=== PATIENT | male | born 1965 | race Caucasian/White ===

== ENCOUNTER 2018-04-24 05:58 | Inpatient (IN) | payer BC ==
[~2018-04-24 05:58] MED LIST: Buffered Lidocaine 0.9% SYRIN* 5 ML/SYR SYRINGE INTRADERM ONE
--- OUTSIDE RECORDS SUMMARY | 2018-04-24 06:03 | XMS REPORT ---
:1965 External Reference #:[id number] Author Organization [employer] Address [address] [place] [address] Phone [phone] Care Team Providers Name Role Phone Chasity Garcia MD Primary Care Physician Unavailable Payers Type Date Identification Numbers Payment Provider Subscriber Health Maintenance Policy Number: [facility] Damaso Cain [facility] (O) [id number] Group Number: [id number] [address] PayID: [id number] KARIE Johnston [address] Medigap Part B Expires: 12/14/2016 Policy Number: BS GISELLE Cain [id number] Group Number: [id number] [address] PayID: [id number] KARIE Rogers [id number] Problems Date Description Provider Status Onset: 04/25/2015 Localized, primary osteoarthritis Adams Stanford M.D. Active Onset: 06/06/2015 Enthesopathy of knee Adams Stanford M.D. Active Onset: 05/10/2017 Arthroplasty of knee Adams Stanford M.D. Active Onset: 05/10/2017 Aftercare following joint replacement Adams Stanford M.D. Active surgery Onset: 12/22/2017 Sciatica Adams Stanford M.D. Active Onset: 12/22/2017 Iliotibial band friction syndrome Adams Stanford M.D. 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 times a day as needed No Active 12/22/ Hx Unknown Medications 2017 - 2017 Diclofenac Sodium 07/26/ Hx Gel 1% 300gm apply 4 M17.0 Adams 2017 - gr to Abdoulaye, 11/28/ knees M.D. 2017 twice a day as needed Keflex 05/09/ Hx Capsules 500mg 21caps 1 tablet Adams 2016 - every 8 Abdoulaye, 05/09/ hours x 5 M.D. 2017 days Oxycodone HCL 04/29/ Hx Capsules 5mg 90caps one to Adams 2016 - three Abdoulaye, 11/28/ tablets M.D. 2017 every 3-4 hours as needed for pain Xarelto 04/29/ Hx Tablets 10mg 20tabs one Adams 2016 - tablet Abdoulaye, 05/09/ daily x M.D. 2016 20 days Ibuprofen 200 04/13/ Hx Tablets 200mg 2 tabs Adams 2016 - prn Abdoulaye, 11/28/ M.D. 2017 Naproxen 12/15/ Hx Tablets 500mg 60tabs 1 tablet Adams 2016 - with food Abdoulaye, 11/28/ by mouth M.D. 2017 twice a day as needed No Active 04/25/ Hx Unknown Medications 2014 - 2015 Advil / Hx Capsules 200mg as needed Unknown 0000 - 2016 Etodolac / Hx Tablets 400mg 1 tab by Unknown 0000 - mouth 2017 times daily as needed Vital Signs Date Vital Result Comment 03/28/2018 Height 67 inches 5'7" Weight 227.00 lb Heart Rate 76 /min BP Systolic Recheck 134 mmHg BP Diastolic Recheck 84 mmHg Respiratory Rate 16 /min Body Temperature 98.1 F BMI (Body Mass Index) 35.5 kg/m2 12/22/2017 Height 67 inches 5'7" Weight 226.00 lb Heart Rate 80 /min BP Systolic Recheck 126 mmHg BP Diastolic Recheck 84 mmHg Respiratory Rate 16 /min Body Temperature 97.6 F BMI (Body Mass Index) 35.4 kg/m2 09/29/2017 Height 67 inches 5'7" Weight 225.00 lb Heart Rate 80 /min BP Systolic Recheck 126 mmHg BP Diastolic Recheck 84 mmHg Respiratory Rate 16 /min Body Temperature 97.9 F BMI (Body Mass Index) 35.2 kg/m2 08/18/2017 Height 68 inches 5'8" Weight 222.00 lb Heart Rate 80 /min BP Systolic Recheck 130 mmHg BP Diastolic Recheck 84 mmHg Respiratory Rate 16 /min Body Temperature 98.0 F BMI (Body Mass Index) 33.8 kg/m2 07/26/2017 Height 68 inches 5'8" Weight 217.00 lb Heart Rate 76 /min BP Systolic Recheck 128 mmHg BP Diastolic Recheck 84 mmHg Respiratory Rate 16 /min Body Temperature 98.1 F BMI (Body Mass Index) 33.0 kg/m2 06/28/2017 Height 68 inches 5'8" Weight 216.00 lb Heart Rate 80 /min BP Systolic Recheck 128 mmHg BP Diastolic Recheck 84 mmHg Respiratory Rate 16 /min Body Temperature 98.6 F BMI (Body Mass Index) 32.8 kg/m2 05/24/2017 Height 68 inches 5'8" Weight 215.00 lb Heart Rate 80 /min BP Systolic Recheck 132 mmHg BP Diastolic Recheck 84 mmHg Respiratory Rate 16 /min Body Temperature 98.0 F BMI (Body Mass Index) 32.7 kg/m2 05/10/2017 Height 69 inches 5'9" Weight 200.00 lb Heart Rate 76 /min BP Systolic Recheck 122 mmHg BP Diastolic Recheck 76 mmHg Respiratory Rate 16 /min Body Temperature 98.3 F BMI (Body Mass Index) 29.5 kg/m2 04/13/2017 Height 69 inches 5'9" Weight 215.00 lb BP Systolic 126 mmHg BP Diastolic 74 mmHg Respiratory Rate 18 /min Body Temperature 97.1 F Pain Level 8 BMI (Body Mass Index) 31.7 kg/m2 03/31/2017 Height 66 inches 5'6" Weight 217.50 lb with shoes Heart Rate 80 /min BP Systolic 114 mmHg left arm, large cuff BP Diastolic 80 mmHg left arm, large cuff BP Systolic Sitting 132 mmHg right arm, large cuff BP Diastolic Sitting 82 mmHg right arm, large cuff BP Systolic Standing 120 mmHg right arm, large cuff BP Diastolic Standing 80 mmHg right arm, large cuff BMI (Body Mass Index) 35.1 kg/m2 03/24/2017 Height 69 inches 5'9" Weight 215.00 lb Heart Rate 80 /min BP Systolic Recheck 126 mmHg BP Diastolic Recheck 84 mmHg Respiratory Rate 16 /min Body Temperature 97.9 F BMI (Body Mass Index) 31.7 kg/m2 12/15/2016 Height 69 inches 5'9" Weight 212.00 lb Heart Rate 74 /min BP Systolic 142 mmHg BP Diastolic 92 mmHg Body Temperature 98.6 F BMI (Body Mass Index) 31.3 kg/m2 11/25/2016 Height 69 inches 5'9" Weight 212.00 lb Heart Rate 76 /min BP Systolic Recheck 130 mmHg BP Diastolic Recheck 84 mmHg Respiratory Rate 16 /min Body Temperature 97.8 F BMI (Body Mass Index) 31.3 kg/m2 11/11/2016 Height 68 inches 5'8" Weight 209.00 lb Heart Rate 76 /min BP Systolic Recheck 126 mmHg BP Diastolic Recheck 80 mmHg Respiratory Rate 16 /min Body Temperature 98.0 F BMI (Body Mass Index) 31.8 kg/m2 11/04/2016 Height 67 inches 5'7" Weight 209.00 lb Heart Rate 80 /min BP Systolic Recheck 132 mmHg BP Diastolic Recheck 86 mmHg Respiratory Rate 16 /min Body Temperature 98.1 F BMI (Body Mass Index) 32.7 kg/m2 09/14/2016 Height 68 inches 5'8" Weight 211.00 lb Heart Rate 80 /min BP Systolic Recheck 136 mmHg BP Diastolic Recheck 84 mmHg Respiratory Rate 16 /min Body Temperature 97.9 F BMI (Body Mass Index) 32.1 kg/m2 05/27/2016 Height 67 inches 5'7" Weight 206.00 lb Heart Rate 80 /min BP Systolic Recheck 124 mmHg BP Diastolic Recheck 80 mmHg Respiratory Rate 16 /min Body Temperature 98.6 F BMI (Body Mass Index) 32.3 kg/m2 04/08/2016 Height 67 inches 5'7" Weight 212.00 lb Heart Rate 80 /min BP Systolic Recheck 126 mmHg BP Diastolic Recheck 80 mmHg Respiratory Rate 16 /min Body Temperature 97.8 F BMI (Body Mass Index) 33.2 kg/m2 06/06/2015 Height 67 inches 5'7" Weight 211.00 lb Heart Rate 80 /min BP Systolic Recheck 132 mmHg BP Diastolic Recheck 84 mmHg Respiratory Rate 16 /min Body Temperature 98.0 F BMI (Body Mass Index) 33.0 kg/m2 04/25/2015 Height 68 inches 5'8" Weight 213.00 lb Heart Rate 72 /min BP Systolic Recheck 124 mmHg BP Diastolic Recheck 80 mmHg Respiratory Rate 16 /min Body Temperature 98.6 F Pain Level 6 BMI (Body Mass Index) 32.4 kg/m2 Results Test Date Test Result H/L Range Note CBC No Diff 04/13/2017 White Blood Count 7.8 10^3/uL 3.5-10.8 Red Blood Count 4.86 10^6/uL 4.0-5.4 Hemoglobin 14.6 g/dL 14.0-18.0 Hematocrit 43 % 42-52 Mean Corpuscular Volume 89 fL 80-94 Mean Corpuscular Hemoglobin 30 pg 27-31 Mean Corpuscular HGB Conc 34 g/dL 31-36 Red Cell Distribution Width 13 % 10.5-15 Platelet Count 265 10^3/uL 150-450 Mean Platelet Volume 8 um3 7.4-10.4 Urinalysis Profile 04/13/2017 Urine Color Straw Urine Appearance Clear Urine Specific Rowena 1.003 Low 1.010-1.030 Urine pH 6.0 5-9 Urine Urobilinogen Negative Negative Urine Ketones Negative Negative Urine Protein Negative Negative Urine Leukocytes Negative Negative Urine Blood Negative Negative Urine Nitrite Negative Negative Urine Bilirubin Negative Negative Urine Glucose Negative Negative Inr/Protime 04/13/2017 Inr 0.81 Low 0.89-1.11 Laboratory test finding 04/13/2017 Partial Thrombo Time 31.2 seconds 26.0 -36.3 PTT Comp Metabolic Panel 04/13/2017 Sodium 140 mmol/L 133-145 Potassium 4.1 mmol/L 3.5-5.0 Chloride 106 mmol/L 101-111 Co2 Carbon Dioxide 30 mmol/L 22-32 Anion Gap 4 mmol/L 2-11 Glucose 91 mg/dL 70-100 Blood Urea Nitrogen 11 mg/dL 6-24 Creatinine 0.68 mg/dL 0.67-1.17 BUN/Creatinine Ratio 16.2 8-20 Calcium 8.6 mg/dL 8.6-10.3 Total Protein 6.3 g/dL Low 6.4-8.9 Albumin 4.1 g/dL 3.2-5.2 Globulin 2.2 g/dL 2-4 Albumin/Globulin Ratio 1.9 1-3 Total Bilirubin 0.40 mg/dL 0.2-1.0 Alkaline Phosphatase 70 U/L 34-104 Alt 22 U/L 7-52 Ast 16 U/L 13-39 Egfr Non- 122.0 >60 Egfr 156.9 >60 1 Type & Screen 04/13/2017 Patient Blood Type A Positive Antibody Screen NEGATIVE Urine Culture And Sensitivities 04/13/2017 Urine Culture SEE RESULT BELOW 2 1 Because ethnic data is not always readily available, this report includes an eGFR for both -Americans and non- Americans. The National Kidney Disease Education Program (NKDEP) does not endorse the use of the MDRD equation for patients that are not between the ages of 18 and 70, are , have extremes of body size, muscle mass, or nutritional status, or are non- or non-. According to the National Kidney Foundation, irrespective of diagnosis, the stage of the disease is based on the level of kidney function: Stage Description GFR(mL/min/1.73 m(2)) 1 Kidney damage with normal or decreased GFR 90 2 Kidney damage with mild decrease in GFR 60-89 3 Moderate decrease in GFR 30-59 4 Severe decrease in GFR 15-29 5 Kidney failure <15 (or dialysis) 2 SEE RESULT BELOW Name: DAMASO CAIN : [address]: Adams Stanford MD Acct: [id number] Unit: [id number] AGE: 52 Location: [facility] Re04/13/17 SEX: M Status: REG REF SPEC: [id number] AMADEO: 04/13/[address] [facility] [address]: Adams Stanford MD REQ: [id number] RECD: 04/13/170 STATUS: COMP _ SOURCE: URINE SPDESC: ORDERED: Urine Culture QUERIES: Urine Source: Clean Catch Procedure Result Reported Site Urine Culture Final 04/14/17- 1239 ML No Growth (<1,000 CFU/mL) * ML - MAIN LAB ([facility]) . END OF REPORT * ML=Testing performed at Main Lab DEPARTMENT OF PATHOLOGY, [address] [place] [address] Shay Camejo M.D. Director [facility] # [id number] Procedures Date CPT Code Description Status 12/22/2017 Inject/Drain Joint/Bursa Major W/O US Completed 08/18/2017 Inject/Drain Joint/Bursa Major W/O US Completed 07/26/201778009 Inject/Drain Joint/Bursa Major W/O US Completed 04/25/2017 18837 TKR Total Knee Replacement Completed 04/25/2017 60010 TKR Total Knee Replacement Completed 03/31/2017 26591 EKG, Interpretation Only Completed 11/25/201609186 Inject/Drain Joint/Bursa Major W/O US Completed 11/11/201648893 Inject/Drain Joint/Bursa Major W/O US Completed 11/04/201698258 Inject/Drain Joint/Bursa Major W/O US Completed 09/14/201656102 Inject/Drain Joint/Bursa Major W/O US Completed 04/08/201663870 Inject/Drain Joint/Bursa Major W/O US Completed 04/25/201551800 Inject/Drain Joint/Bursa Major W/O US Completed Encounters Type Date Location Provider CPT E/M Dx Office Visit 12/22/2017 [facility], [address]84 M17.12 8:00a Klaudia Kline M.D. M76.31 M54.31 Z96.651 Office Visit 09/29/2017 8:00a [facility] 71708 M70.51 Klaudia Kline M.D. Z96.651 Office Visit 08/18/2017 8:15a [facility] 03739 M70.51 Klaudia Kline M.D. Z47.1 Z96.651 Office Visit 07/26/2017 8:00a [facility] M.D. 85617 Z47.1 Klaudia Crandall96.651 M17.12 Office Visit 03/31/2017 10:00a Eliud Liang, 09997 Z01.810 Martin M17.11 Z13.6 Office Visit 03/24/2017 8:30a [facility] 49704 M17.11 Klaudia Kline M.D. Office Visit 12/15/2016 9:00a [facility] 20503 M17.0 [facility] Office Visit 05/27/2016 8:00a [facility] 27155 M17.0 Klaudia AT Eliud Salazar Office Visit 04/08/2016 8:30a [facility] 02529 M17.0 Klaudia AT Eliud Salazar Office Visit 06/06/2015 9:30a [facility] 28661 M70.51 Klaudia AT Eliud Salazar Office Visit 04/25/2015 8:30a [facility] 06271 M17.0 Klaudia AT Eliud Salazar Plan of Care Future Appointment(s):05/23/2018 9:30 am - Adams [facility] M.D. at [facility] AT Bnribyib34/29/2018 7:30 am - NICOLE Jorge at [facility]04/24/2018 7:30 am - Adams Stanford M.D. at [facility]03/28/2018 - Adams Stanford M.D.M17.12 Unilateral primary osteoarthritis, left kneeFollow up:4 weeks after surgery
[2018-04-24] MEDS ORDERED: ceFAZolin 2 GM PREMIX in ORs 2 GM/50 ML BAG IVPB ONE (06:13)
[2018-04-24] MEDS ORDERED: Buffered Lidocaine 0.9% SYRIN* 5 ML/SYR SYRINGE ONE (06:14)
[2018-04-24] MEDS ORDERED: Midazolam* 1 MG/ML 5 ML VIAL (5 MG) ONE (07:27)
[2018-04-24] MEDS ORDERED: fentaNYL* 50 MCG/ML 2 ML VIAL (100 MCG VIAL) ONE (07:27)
[2018-04-24] MEDS ORDERED: Tranexamic Acid 1,000 MG in NS 0.9% 50 ML IV ONE (07:30)
[2018-04-24] MEDS ORDERED: Bupivacaine 0.25% W/EPI* 10 ML SDV ONE (07:34)
[2018-04-24] MEDS ORDERED: ROPIVACAINE 5 MG/ML 30 ML BTL (0.5%) ONE (07:36)
[2018-04-24] MEDS ORDERED: Bupivacaine 0.5% SDV PF* 30ML VIAL ONE (08:03)
[2018-04-24] MEDS ORDERED: Propofol* 10 MG/ML 20 ML BTL IV PUSH ONE ×2 (08:03→09:18)
[2018-04-24] MEDS ORDERED: EPHEDrine (Pressors)* 50 MG/ML VIAL ONE (08:06)
[2018-04-24] MEDS ORDERED: Ondansetron INJ* 2 MG/ML VIAL IV PRN ×2 (10:09→10:11)
[2018-04-24] MEDS ORDERED: fentaNYL* 50 MCG/ML 2 ML VIAL (100 MCG VIAL) IV PRN (10:09)
[2018-04-24] MEDS ORDERED: Naloxone* 0.4 MG/ML 1 ML VIAL IV PRN (10:09)
[2018-04-24] MEDS ORDERED: Ondansetron TAB* 4 MG PO PRN (10:11)
[2018-04-24] MEDS ORDERED: diPHENhydraMINE IV* 50 MG/ML 1 ml VIAL (BENADRYL) IV PRN (10:11)
[2018-04-24] MEDS ORDERED: diPHENhydraMINE PO* 25 MG PO PRN (10:11)
[2018-04-24] MEDS ORDERED: Magnesium Hydroxide LIQ* 30 ML UDC PO PRN (10:11)
[2018-04-24] MEDS ORDERED: Morphine INJ* 2 MG/ML 1 ML SYRINGE (TWO MG - NEW SYRINGE VERSION) IV PRN (10:11)
[2018-04-24] MEDS ORDERED: HYDROmorphone INJ1* 1 MG/ML SYRINGE ONE (10:41)
[2018-04-24] MEDS: HYDROmorphone INJ1* 1 MG/ML SYRINGE IV PRN ×3 (10:42→10:58)
--- NOTE | 2018-04-24 10:45 | RAD ---
INDICATION: Status post total left knee were replacement surgery. TECHNIQUE: 2 views of the left knee were obtained. FINDINGS: The patient is status post total left knee replacement surgery. The bones and prostheses are in normal alignment. There is a small amount of air within the soft tissues consistent with the patient's recent surgery. There are multiple surgical cee present anterior. IMPRESSION: STATUS POST TOTAL LEFT KNEE REPLACEMENT SURGERY.
[2018-04-24] MEDS ORDERED: oxyCODONE/Acetamin 5/325 MG* TAB ONE (10:47)
[2018-04-24] MEDS: oxyCODONE/Acetamin 5/325 MG* TAB PO PRN ×2 (10:48→10:49)
[2018-04-24] MEDS ORDERED: Acetaminophen TAB* 325 MG PO SCH (11:00)
[2018-04-24] MEDS ORDERED: ceFAZolin 1 GM in Dextrose (*) 1 GM/50 ML BAG IVPB SCH (11:00)
[2018-04-24] MEDS: D5W 1/2 NS 1000 ML BAG* 1,000 ML IV SCH ×2 (11:27→22:54)
[2018-04-24] MEDS: traMADol TAB* 50 MG PO SCH ×3 (12:43→23:27)
--- NOTE | 2018-04-24 13:19 | OP ---
DATE OF OPERATION: 04/24/18 - ROOM #341 DATE OF : 63 ATTENDING SURGEON: Adams Stanford MD. MALARIOLOGIST: NICOLE Jorge. ANESTHESIA: Regional/spinal/sedation. PRE-OP DIAGNOSIS: Osteoarthritis of the left knee. POST-OP DIAGNOSIS: Osteoarthritis of the left knee. OPERATIVE PROCEDURE: Left total knee arthroplasty. ESTIMATED BLOOD LOSS: Less than 50 cc. COMPLICATIONS: None. HARDWARE: Orlando Persona #8 femur, F tibia, 13 mm polyethylene spacer, 35 mm all polyethylene patellar button. SUMMARY: Mr. Blunt is a 53-year-old male who has had several years worth of troubles with both of his knees. He had been treated conservatively with anti-inflammatories, various injections and physical therapy and initially all of these had worked well. Slowly, however, the knees gave him more troubles and a little over a year ago, he underwent a right total knee arthroplasty. This had worked well, so he was able to get back to work and do activities. The left knee has continued to give him troubles and was responding less well to interventions such that he was very interested in having a left knee replacement done as well. Risks of surgery such as infection, scar formation, stiffness, DVT, pulmonary embolism, hardware failure, and the need for physical therapy were reviewed with him and he had wished to proceed. He had some difficulty progressing on the right side because of pain and this is where he had waited some to get the left done, but reports he is ready to face the rehab process. Yareli Ramos was present for all aspects of the case from positioning , to prep, to the approach, positioning the implants and closing and the case could not have been done without an events and promotions assistant. DESCRIPTION OF PROCEDURE: The patient was brought to the OR after a block had been placed in the holding area. Spinal anesthesia was introduced. Izquierdo catheter was placed. Tourniquet was placed over the proximal left thigh and was used during the case. Total tourniquet time would be 70 minutes. Left knee was prepped and then draped. Esmarch was used to exsanguinate the leg and the tourniquet was raised. A midline incision was made, centered about the patella , it was carried down to the medial side of the patellar tendon and upwards to about 3 to 4 cm above the superior pole of the patella. Incision was carried down through the skin and subcutaneous tissues. Small bleeders encountered were ligated using electrocautery. Extensor mechanism was exposed and a sharp parapatellar arthrotomy was made. Clear yellowish joint fluid was encountered. Polished, sclerotic bone was easily seen. Soft tissues were sharply elevated from the medial side of the tibia and the fat pad was sharply excised. Patella measured 24 mm in thickness and a nice 10-mm cut was taken. Patella was then easily subluxated laterally and the knee was flexed up. Nice exposure of the distal femur was obtained. Step drill was used to open the femoral canal and a intramedullary guide was placed. This was set at 2 degrees and to resect 2 mm of bone as on the right he had been set at 3 degrees and to resect 2 mm and on that side I still needed to take more from the medial femoral condyle. Femoral cut was taken and it appeared a nice cut was obtained. Femur was sized and he again sat between a 7 and an 8 and with a 7 cutting block I would have needed to move up and taken quite a bit of bone, so the 8 block was selected. With the 8 seated and running through the superior drill hole, this sat nicely over the top side of the femur. Anterior and posterior femoral cuts followed by the chamfer cuts were taken. Attention was turned to the tibia. Step drill was used to open the tibial canal and the intramedullary guide was placed. Outrigger was adjusted until it appeared it would take 2 mm from the worn medial side and then rotation was adjusted so that the drop joceline was right along the anterior spine of the tibia. Cutting guide was pinned into place and the proximal tibial cut was taken. Cut appeared a little more than the 2 mm as intended. Tibia was sized and it sat nicely for an F. This was just one size down from the G that he had on the other side. Spacer blocks were used and because of the extra 2 to 3-mm cut, the larger block needed to be used, but it could be seen where he was snug on the medial side with very specific play and would sit in valgus with WB if he was allowed to remain this way. Additional [id number] was taken from the medial femoral condyle coming straight across so that the femur would sit better. With a 12 block, he now sat much better and had a little bit of play but did not have that very specific valgus that he had before. Tibia was again sized and he sat nicely with an F. F was then pinned into place and the proximal tibia was drilled and then punched. An 8 femur was then placed and the notch cut was finished using the notch cut finishing guide and stud holes were drilled. He was trialed with a 12 and then a 13 and had good motion with the knee. Patella though tended to sublux a little bit and with palpation he had a very specific band laterally. Band was cut using a 10 blade. Patella was sized and formal lateral release, however, was not fully done and a little bit of pie-crusting though was. Patella sized nicely for a 35 and the drill guide was placed and drilled. [address] and patella tracking was now perfect. Trial instrumentation was removed and the knee was copiously pulse lavaged. Cement was being prepared. Tibia followed by femur and patella were all cemented into place. Cement was allowed to harden and knee was then searched for excess cement. Excess cement was removed, knee was trialed with a 12 and a 13, and liked the 13 fit. 13 polyethylene was then snapped into place. Knee was again copiously pulse lavaged and parapatellar arthrotomy was then closed using #2 Vicryl sutures. Tourniquet was let down and no significant bleeding was encountered. Subcutaneous tissues were reapproximated using 2-0 Vicryl. Skin was closed using cee. Sterile dressing and a Cryo-Cuff were applied in the OR. The patient was then awakened stable and transferred to the recovery room. [id number]/[facility] #: [id number] KATHY
[2018-04-24] MEDS: oxyCODONE TAB* 5 MG TAB PO PRN ×2 (14:32→19:11)
[2018-04-24] MEDS: Morphine VIAL* 4 MG/ML VIAL (1 ml vial) IV PRN ×2 (14:52→22:05)
[2018-04-24] MEDS: ceFAZolin 1 GM* X 3 DOSES POST-OP Q8H (AddVan) IVPB SCH ×4 (15:47→23:27)
[2018-04-24] MEDS ORDERED: Warfarin TAB(*) 10 MG PO ONE (17:00)
[2018-04-24] MEDS: Magnesium Hydroxide LIQ* 30 ML UDC PO SCH (19:43)
[2018-04-24] MEDS: Acetaminophen TAB* 325 MG PO SCH (19:44)
[2018-04-24] MEDS: Docusate CAP* 100 MG PO SCH (19:44)
[2018-04-24] MEDS: Cyclobenzaprine TAB* 10 MG PO PRN (22:04)
[2018-04-25] MEDS: Acetaminophen TAB* 325 MG PO SCH ×3 (03:32→19:52)
[2018-04-25] MEDS: oxyCODONE TAB* 5 MG TAB PO PRN ×6 (03:33→23:42)
[2018-04-25] MEDS: Morphine VIAL* 4 MG/ML VIAL (1 ml vial) IV PRN ×2 (03:33→09:48)
[2018-04-25] MEDS: traMADol TAB* 50 MG PO SCH ×4 (05:08→23:37)
[2018-04-25] MEDS: Cyclobenzaprine TAB* 10 MG PO PRN ×2 (06:31→15:49)
[2018-04-25 06:48] LABS: Hematocrit 39 % (42-52); Hemoglobin 13.3 g/dl (14.0-18.0); Mean Platelet Volume 7.3 um3 (7.4-10.4); Platelet Count 235 10^3/ul (150-450)
[2018-04-25 06:57] LABS: INR 1.01 (0.77-1.02)
[2018-04-25 07:11] LABS: EGFR Non-African American 140.4 (>60)
[2018-04-25] MEDS: Vitamin THERAPEUTIC TAB PO SCH (07:43)
[2018-04-25] MEDS: Docusate CAP* 100 MG PO SCH ×2 (07:43→19:53)
[2018-04-25] MEDS: Magnesium Hydroxide LIQ* 30 ML UDC PO SCH ×2 (07:44→19:53)
[2018-04-25] MEDS: ceFAZolin 1 GM* X 3 DOSES POST-OP Q8H (AddVan) IVPB SCH ×2 (07:44)
--- NOTE | 2018-04-25 08:48 | PN ---
Progress Note - Progress Note Date of Service: 04/25/18 SOAP: Subjective: []Patient seen and examined at bedside. His left knee and thigh are very sore rated at 6/10 with constant pain. Cyclobenzaprine is helping with thigh pain and he is interested in massage. Denies any chest pain, shortness of breath, dizziness, nausea, leg numbness. VSS and afebrile overnight Objective: []General: Well appearing, NAD LLE: Left knee dressing CDI, cryo unit in use, thigh is soft, DF/PF intact, sensation intact distally, DP2+, capillary refill less than two seconds distally Calves supple and nontender without erythema, edema or palpable cords Assessment: []POD 1 s/p left total knee arthroplasty Plan: []WBAT PT/OT Patient will alert nursing if he would like to schedule massage. Continue use of cyclobenzaprine Dressing change daily starting 04/26 Vital Signs Temp 98.4 F 04/25/18 07:30 Pulse 91 04/25/18 07:30 Resp 18 04/25/18 08:35 BP 153/90 04/25/18 07:30 Pulse Ox 100 04/25/18 07:30 Intake & Output 04/24/18 04/25/18 04/25/18 18:59 06:59 18:59 Intake Total 2820 1600 Output Total 1475 850 Balance 1345 750 Intake: IV Fluids 2100 990 D5W 1/2 NS 990 lr 2100 Oral 720 610 Output: Izquierdo 1425 850 Estimated Blood Loss 50 Laboratory Last Values Hgb 13.3 g/dl (14.0-18.0) L 04/25/18 06:37 Hct 39 % (42-52) L 04/25/18 06:37 Plt Count 235 10^3/ul (150-450) 04/25/18 06:37 MPV 7.3 um3 (7.4-10.4) L 04/25/18 06:37 INR (Anticoag Therapy) 1.01 (0.77-1.02) 04/25/18 06:37 Sodium 132 mmol/L (135-145) L 04/25/18 06:37 Potassium 3.8 mmol/L (3.5-5.0) 04/25/18 06:37 Chloride 100 mmol/L (101-111) L 04/25/18 06:37 Carbon Dioxide 26 mmol/L (22-32) 04/25/18 06:37 Anion Gap 6 mmol/L (2-11) 04/25/18 06:37 BUN 9 mg/dL (6-24) 04/25/18 06:37 Creatinine 0.60 mg/dL (0.67-1.17) L 04/25/18 06:37 Est GFR ( Amer) 169.9 (>60) 04/25/18 06:37 Est GFR (Non-Af Amer) 140.4 (>60) 04/25/18 06:37 BUN/Creatinine Ratio 15.0 (8-20) 04/25/18 06:37 Glucose 159 mg/dL (70-100) H 04/25/18 06:37 Calcium 8.3 mg/dL (8.6-10.3) L 04/25/18 06:37
[2018-04-25] MEDS: Heparin VIAL(*) 5000 UNITS/ML VIAL (FIVE THOUSAND) SUBCUT SCH ×2 (12:04→19:54)
[2018-04-25] MEDS ORDERED: Warfarin TAB(*) 4 MG PO ONE (17:00)
[2018-04-25] MEDS: Ketorolac INJ* 30 MG/ML 1 ML VIAL IV PUSH SCH ×2 (17:51→23:37)
[2018-04-26] MEDS: oxyCODONE TAB* 5 MG TAB PO PRN ×5 (04:12→22:11)
[2018-04-26] MEDS: Acetaminophen TAB* 325 MG PO SCH ×3 (04:12→19:57)
[2018-04-26] MEDS: Heparin VIAL(*) 5000 UNITS/ML VIAL (FIVE THOUSAND) SUBCUT SCH ×3 (04:13→19:58)
[2018-04-26 06:00] LABS: Hematocrit 38 % (42-52); Mean Platelet Volume 7.6 um3 (7.4-10.4); Platelet Count 219 10^3/ul (150-450)
[2018-04-26] MEDS: Ketorolac INJ* 30 MG/ML 1 ML VIAL IV PUSH SCH (06:03)
[2018-04-26] MEDS: traMADol TAB* 50 MG PO SCH ×4 (06:04→22:11)
[2018-04-26 06:06] LABS: INR 1.2 (0.77-1.02)
[2018-04-26] MEDS: Docusate CAP* 100 MG PO SCH ×2 (08:45→19:57)
[2018-04-26] MEDS: Vitamin THERAPEUTIC TAB PO SCH (08:45)
[2018-04-26] MEDS: Magnesium Hydroxide LIQ* 30 ML UDC PO SCH ×2 (08:45→19:59)
[2018-04-26] MEDS ORDERED: Bisacodyl SUPP* 10 MG SUPP PR PRN (10:11)
--- NOTE | 2018-04-26 12:25 | PN ---
Progress Note - Progress Note Date of Service: 04/26/18 SOAP: Subjective: []Patient seen and examined at bedside. He is very hesitant to go home today due to 9/10 pain with physical therapy and 6-7/10 at rest. Denies any chest pain , shortness of breath, dizziness, nausea, history of blood clot. Objective: []General: Well appearing, NAD LLE: Left knee dressing changed, incision CDI, cryo unit in use, thigh is soft, DF/PF intact, sensation intact distally, DP2+, capillary refill less than two seconds distally. Calf 1+ edema without erythema or palpable cords, mild diffuse tenderness to palpation. Calf and thigh with same reported soreness with palpation. Right calf supple and nontender without erythema, edema or palpable cords Radial pulse regular Assessment: []POD 2 s/p left total knee arthroplasty Plan: []WBAT PT/OT Heparin, coumadin 8 mg today Monitor HR as he was tachycardic overnight. He reports pain always greater than 6/10 overnight, not tachy this morning but will follow. Also follow O2 sat. Vital Signs Temp 98.1 F 04/26/18 08:07 Pulse 93 04/26/18 07:45 Resp 20 04/26/18 11:05 BP 126/84 04/26/18 08:07 Pulse Ox 94 04/26/18 08:00 Intake & Output 04/25/18 04/26/18 04/26/18 18:59 06:59 18:59 Intake Total 770 480 Output Total 300 1400 Balance -300 -630 480 Intake: Oral 770 480 Output: Urine 300 1400 Izquierdo 0 Other: Estimated Void Medium # Bowel Movements 1 Estimated Stool Amount Small # Voids 1 Laboratory Last Values Hgb 13.0 g/dl (14.0-18.0) L 04/26/18 05:32 Hct 38 % (42-52) L 04/26/18 05:32 Plt Count 219 10^3/ul (150-450) 04/26/18 05:32 MPV 7.6 um3 (7.4-10.4) 04/26/18 05:32 INR (Anticoag Therapy) 1.20 (0.77-1.02) H 04/26/18 05:32 Sodium 136 mmol/L (135-145) 04/26/18 05:32 Potassium 3.8 mmol/L (3.5-5.0) 04/25/18 06:37 Chloride 100 mmol/L (101-111) L 04/25/18 06:37 Carbon Dioxide 26 mmol/L (22-32) 04/25/18 06:37 Anion Gap 6 mmol/L (2-11) 04/25/18 06:37 BUN 9 mg/dL (6-24) 04/25/18 06:37 Creatinine 0.60 mg/dL (0.67-1.17) L 04/25/18 06:37 Est GFR ( Amer) 169.9 (>60) 04/25/18 06:37 Est GFR (Non-Af Amer) 140.4 (>60) 04/25/18 06:37 BUN/Creatinine Ratio 15.0 (8-20) 04/25/18 06:37 Glucose 159 mg/dL (70-100) H 04/25/18 06:37 Calcium 8.3 mg/dL (8.6-10.3) L 04/25/18 06:37
[2018-04-26] MEDS: LORazepam TAB(*) 1 MG PO PRN ×2 (15:02→22:10)
[2018-04-26] MEDS ORDERED: Warfarin TAB(*) 4 MG PO ONE (17:00)
[2018-04-27] MEDS: oxyCODONE TAB* 5 MG TAB PO PRN ×3 (04:21→12:38)
[2018-04-27] MEDS: Acetaminophen TAB* 325 MG PO SCH ×2 (04:21→11:43)
[2018-04-27] MEDS: traMADol TAB* 50 MG PO SCH ×2 (04:21→10:56)
[2018-04-27] MEDS: Heparin VIAL(*) 5000 UNITS/ML VIAL (FIVE THOUSAND) SUBCUT SCH ×2 (04:23→11:45)
[2018-04-27 06:13] LABS: Hematocrit 35 % (42-52); Hemoglobin 11.7 g/dl (14.0-18.0); Mean Platelet Volume 7.3 um3 (7.4-10.4); Platelet Count 218 10^3/ul (150-450)
[2018-04-27 06:19] LABS: INR 1.32 (0.77-1.02)
[2018-04-27] MEDS: Docusate CAP* 100 MG PO SCH (08:39)
[2018-04-27] MEDS: Vitamin THERAPEUTIC TAB PO SCH (08:40)
[2018-04-27] MEDS: Magnesium Hydroxide LIQ* 30 ML UDC PO SCH (08:40)
--- NOTE | 2018-04-27 10:26 | PN ---
Progress Note - Progress Note Date of Service: 04/27/18 SOAP: Subjective: []Patient seen and examined at bedside. He feels better today but states he still has significant left knee pain. He denies any chest pain, irregular heartbeats, shortness of breath, dizziness, nausea. Patient is generally anxious and requests ativan to go home with. Objective: []General: Well appearing, NAD LLE: Dressing changed, incision CDI. Thigh soft. Sensation intact distally. DP2+ . Right calf supple, nontender, no erythema, no edema, no palpable cords Left calf supple, no erythema, no palpable cords. He has 1+ edema of the knee and lower leg with mild soreness. Assessment: []POD 3 s/p left total knee arthroplasty Plan: []WBAT PT/OT Heparin, coumadin 8 mg today Dopplar LLE due to mild soreness but low suspicion for DVT, dopplar study negative Plan for DC to home today Vital Signs Temp 98.4 F 04/27/18 07:42 Pulse 100 04/27/18 07:42 Resp 18 04/27/18 08:30 BP 117/74 04/27/18 07:42 Pulse Ox 97 04/27/18 08:00 Intake & Output 04/26/18 04/27/18 04/27/18 18:59 06:59 18:59 Intake Total 1160 480 600 Output Total 300 950 600 Balance 860 -470 0 Intake: Oral 1160 480 600 Output: Urine 300 950 600 Other: Estimated Void Small Medium # Voids 1 1 Laboratory Last Values Hgb 11.7 g/dl (14.0-18.0) L 04/27/18 05:58 Hct 35 % (42-52) L 04/27/18 05:58 Plt Count 218 10^3/ul (150-450) 04/27/18 05:58 MPV 7.3 um3 (7.4-10.4) L 04/27/18 05:58 INR (Anticoag Therapy) 1.32 (0.77-1.02) H 04/27/18 05:58 Sodium 136 mmol/L (135-145) 04/26/18 05:32 Potassium 3.8 mmol/L (3.5-5.0) 04/25/18 06:37 Chloride 100 mmol/L (101-111) L 04/25/18 06:37 Carbon Dioxide 26 mmol/L (22-32) 04/25/18 06:37 Anion Gap 6 mmol/L (2-11) 04/25/18 06:37 BUN 9 mg/dL (6-24) 04/25/18 06:37 Creatinine 0.60 mg/dL (0.67-1.17) L 04/25/18 06:37 Est GFR ( Amer) 169.9 (>60) 04/25/18 06:37 Est GFR (Non-Af Amer) 140.4 (>60) 04/25/18 06:37 BUN/Creatinine Ratio 15.0 (8-20) 04/25/18 06:37 Glucose 159 mg/dL (70-100) H 04/25/18 06:37 Calcium 8.3 mg/dL (8.6-10.3) L 04/25/18 06:37
--- NOTE | 2018-04-27 11:11 | RAD ---
Indication: Left leg pain, recent knee replacement.. Duplex Doppler sonography of the deep venous system of the left lower extremity deep venous system was performed. Bilaterally the common femoral veins appear patent and compressible. Left proximal greater saphenous vein, proximal deep femoral vein, femoral vein, popliteal vein, posterior tibial veins and peroneal veins appear patent and compressible. IMPRESSION: NO EVIDENCE OF DEEP VENOUS THROMBOSIS IS IDENTIFIED.
[2018-04-27 11:43] VITALS: BP 114/70
[2018-04-27] MEDS: LORazepam TAB(*) 1 MG PO PRN (11:44)
--- NOTE | 2018-04-28 12:07 | DS ---
DISCHARGE SUMMARY: DATE OF ADMISSION: DATE OF DISCHARGE: 04/27/18 PROVIDER: Dr. Adams Stanford.* (DICTATED BY NICOLE DON) PRE-OP DIAGNOSIS: Osteoarthritis of the left knee. OPERATIVE PROCEDURE: Left total knee arthroplasty. HISTORY: Mr. Blunt is a 53-year-old male who has years of increasingly severe left knee pain. He elected to undergo left total arthroplasty after failing conservative management. HOSPITAL COURSE: Patient was admitted to [facility] on 04/24/18. He underwent left total knee arthroplasty without complication. Postop day 1, he was well appearing, in no acute distress. Dressing was clean, dry, and intact. Dorsiflexion and plantar flexion intact. DP pulse 2+. Vital Signs: Temperature 98.4, pulse 91, respiratory rate 18, blood pressure 163/90, pulse ox 100. Hemoglobin 13.3, hematocrit 39, INR 1.1. Postop day 2, well appearing, in no acute distress. Dressing was changed. Dorsiflexion and plantar flexion intact. Patient had slight tenderness in both left calf and thigh. This looks like more than a muscle spasm than anything else. He did have tachycardia overnight with captured reading as high as 123 on one occasion, though typically between 100 and 110. EKG was done that showed sinus tachycardia. Postop day 2, patient's tachycardia did improve with a range of 98 to 102 on 07/14. During the entirety of his stay, he had no chest pain, shortness of breath, or dizziness, or a feeling of irregular heart beat. A Doppler study of his left calf was done with low suspicion for DVT and the DVT study did show it to be negative for DVT. Patient was deemed to be medically and orthopedically stable for discharge home. DISCHARGE MEDICATIONS: 1. Cyclobenzaprine 10 mg p.o. t.i.d. p.r.n. 2. Docusate 100 mg p.o. b.i.d. p.r.n. 3. Oxycodone 10 mg p.o. q.4 hours p.r.n. 4. Warfarin 2 mg p.o. daily 1 to 3 tabs daily, dose depends on INR. 5. Acetaminophen 975 mg q.8 hours p.r.n. 6. Tramadol 50 mg p.o. q.6 hours p.r.n. 7. Lorazepam 1 mg p.o. every 6 hours p.r.n. DISCHARGE PLAN: The patient will be weightbearing as tolerated. He will be on Coumadin for DVT prophylaxis. INR on 04/27/18 was 1.32. Dosing instructions, 04/27/18 is 8 mg, 04/28/18 through 04/30/18 is 4 mg daily. Recheck INR for further dosing instruction on 05/01/18. For pain control, Ultram 50 mg every 6 hours as needed pain, max of 8 tabs per day, oxycodone 10 mg one tablet every 4 hours as needed for breakthrough pain, max of 3 tabs per day. Follow up with Dr. Stanford on 05/05/18 at 10:30 at [facility] for staple, suture removal, sooner with any concerns and additionally 4 weeks postop for followup appointment. DISPOSITION: Discharged to home. NICOLE DON [id number]/[facility] #: [id number] [facility]
== END 2018-04-27 15:32 | disposition home or self-care (01) | DRG 302 ==
LOC: AA 05:58 → SSU 11:37
PROVIDERS: ADMIT Orthopaedic Surgery; ATTEND Orthopaedic Surgery
PROC: 0SRD0J9 Replacement of Left Knee Joint with Synthetic Substitute, Cemented, Open Approach (ICD-10-PCS; principal; 2018-04-24 07:30)
DX: M17.12 Unilateral primary osteoarthritis, left knee (principal); R00.0 Tachycardia, unspecified; E66.9 Obesity, unspecified; F41.9 Anxiety disorder, unspecified; K21.9 Gastro-esophageal reflux disease without esophagitis; Z96.651 Presence of right artificial knee joint; Z79.01 Long term (current) use of anticoagulants; Z23 Encounter for immunization; Z68.38 Body mass index [BMI] 38.0-38.9, adult; Z86.010 Personal history of colon polyps; Z83.71 Family history of colonic polyps
CPT/HCPCS: 36415; 80048; 84300; 85014; 85018; 85049; 85610; 88305; 88311; 90686; 93005; A9270-GY; C1776; G8987-GO-CJ; G8988-GO-CJ; G8989-GO-CJ; J0690; J1170; J1644; J1885; J2250; J2270; J2704; J2795; J3010

== ENCOUNTER 2020-09-21 05:26 | Observation (INO) ==
[2020-09-21 07:27] LABS: ABS Lymphocytes 2.5 10^3/ul (1.0-4.8); ABS Monocytes 0.4 10^3/ul (0-0.8); ABS Neutrophils 4.8 10^3/ul (1.5-7.7); Eosinophil % 0.6 %; Hematocrit 43 % (42-52); Hemoglobin 14.7 g/dL (14.0-18.0); Lymphocyte % 32.3 %; Mean Corpuscular HGB Conc 34 g/dL (31-36); Mean Corpuscular Hemoglobin 31 pg (27-31); Mean Corpuscular Volume 91 fL (80-94); Mean Platelet Volume 7.6 fL (7.4-10.4); Nucleated Red Blood Cells % 0.1; Platelet Count 230 10^3/uL (150-450); Red Blood Count 4.75 10^6 /uL (4.18-5.48); Red Cell Distribution Width 14 % (10-15); White Blood Count 7.9 10^3/uL (3.5-10.8)
[2020-09-21 07:44] LABS: Albumin 3.9 g/dL (3.2-5.2); Albumin/Globulin Ratio 1.5 (1-3); BUN/Creatinine Ratio 22.2 (8-20); Calcium 9.1 mg/dL (8.6-10.3); EGFR African American 136.6 (>60); EGFR Non-African American 112.9 (>60); Globulin 2.6 g/dL (2-4); Potassium 4.5 mmol/L (3.5-5.0); Total Bilirubin 0.3 mg/dL (0.2-1.0); Total Protein 6.5 g/dL (6.4-8.9)
[2020-09-21 08:05] LABS: Urine Appearance Clear; Urine Bilirubin Negative (Negative); Urine Blood Negative (Negative); Urine Color Yellow; Urine Glucose Negative (Negative); Urine Ketones Negative (Negative); Urine Nitrite Negative (Negative); Urine Protein Negative (Negative); Urine Specific Gravity 1.013 (1.010-1.030); Urine Urobilinogen Negative (Negative)
[2020-09-21 08:39] LABS: HDL Cholesterol 40.1 mg/dL
[2020-09-21] MEDS ORDERED: Ondansetron 4 mg VIAL 2 MG/ML 2 ml VIAL IV PRN (08:54)
[2020-09-21] MEDS: Enoxaparin 40 MG/0.4 ML SYR SUBCUT SCH (10:44)
[2020-09-22] MEDS ORDERED: Perflutren Lipid Microsphere 3 ML VIAL ONE (07:54)
[2020-09-22 08:10] LABS: ABS Eosinophils 0.1 10^3/ul (0-0.6); ABS Monocytes 0.6 10^3/ul (0-0.8); ABS Neutrophils 4.5 10^3/ul (1.5-7.7); Eosinophil % 0.9 %; Hematocrit 46 % (42-52); Hemoglobin 15.3 g/dL (14.0-18.0); Lymphocyte % 36.5 %; Mean Corpuscular HGB Conc 34 g/dL (31-36); Mean Corpuscular Hemoglobin 31 pg (27-31); Mean Corpuscular Volume 92 fL (80-94); Mean Platelet Volume 7.5 fL (7.4-10.4); Platelet Count 242 10^3/uL (150-450); Red Blood Count 4.96 10^6 /uL (4.18-5.48); Red Cell Distribution Width 15 % (10-15); White Blood Count 8.2 10^3/uL (3.5-10.8)
[2020-09-22 08:19] LABS: BUN/Creatinine Ratio 20.7 (8-20); Calcium 9.5 mg/dL (8.6-10.3); EGFR African American 109.8 (>60); EGFR Non-African American 90.8 (>60); Potassium 4.8 mmol/L (3.5-5.0)
[2020-09-22] MEDS: Enoxaparin 40 MG/0.4 ML SYR SUBCUT SCH (09:31)
[2020-09-22 13:48] LABS: C Reactive Protein 6.53 mg/L (<8.01)
[2020-09-22 15:07] VITALS: BP 96/65
== END 2020-09-22 16:15 | disposition home or self-care (01) ==
LOC: ED 05:26 → MEDTELE 05:26
PROVIDERS: ADMIT Student in an Organized Health Care Education/Training Program; ATTEND Hospitalist